=== PATIENT | female | born 1955 | race Caucasian/White ===

== ENCOUNTER 2018-02-14 20:01 | Emergency (ER) | payer MEDICARE, MEDICAID ==
[2018-02-14] MEDS ORDERED: Diatrizoate Meglumine/Diatri 30 mL Sol ONE (20:28)
--- NOTE | 2018-02-14 20:30 | ED Physician Chart ---
ED Chief Complaint/HPI - Patient Information Date Seen:: 02/14/18 Time Seen:: 20:15 Chief Complaint:: G-tube replacement History of Present Illness:: Patient was sent here for G-tube replacement. Her G-tube is out. Allergies:: Allergies Allergy/AdvReac Type Severity Reaction Status Date / Time No Known Allergies Allergy Verified 02/14/18 20:05 Vitals:: Vital Signs - 8 hr 02/14/18 20:05 Temp 97.8 F HR 99 RR 18 BP 141/93 O2 Sat % 95 Historian:: EMS Review:: Transfer documents Reviewed ED Review of Systems - Review of Systems General/Constitutional: No fever, No chills, No weight loss, No weakness, No diaphoresis, No edema, No loss of appetite Skin: No skin lesions, No rash, No bruising Head: No headache, No light-headedness Eyes: No loss of vision, No pain, No diplopia ENT: No earache, No nasal drainage, No sore throat, No tinnitus Neck: No neck pain, No swelling, No thyromegaly, No stiffness, No mass noted Cardio Vascular: No chest pain, No palpitations, No PND, No orthopnea, No edema Pulmonary: No SOB, No cough, No sputum, No wheezing GI: No nausea, No vomiting, No diarrhea, No pain, No melena, No hematochezia, No constipation, No hematemesis G/U: No dysuria, No frequency, No hematuria Musculoskeletal: No bone or joint pain, No back pain, No muscle pain Endocrine: No polyuria, No polydipsia Psychiatric: Prior psych history, No depression, No anxiety, No suicidal ideation Hematopoietic: No bruising, No lymphadenopathy Allergic/Immuno: No urticaria, No angioedema Neurological: No syncope, No focal symptoms, No weakness, No paresthesia, No headache, No seizure, No dizziness, No confusion, No vertigo ED Past Medical History - Past Medical History Past Medical History: HTN, DM, Other (mental retardation; several palsy; or lipidemia; stage III decubitus left hemibuttocks; status post pneumonia) Family History: Other Social History: Care Facility Surgical History: PEG/GTube Psychiatricy History: Other (mental retardation) Family Medical History - Family Member Mother History Unknown: Yes ED Physical Exam - Physical Examination Other Gen/Cons comments:: Contractured; nonverbal Head: Atraumatic Eyes: Lids, conjuctiva normal, PERRL Other ENMT comments:: Edentulous Neck: No nuchal rigidity Respiratory: Nl effort/Exclusion, Clear to Auscultation Cardio Vascular: RRR, No murmur, gallop, rubs, NL S1 S2 GI: No tenderness/rebounding/guarding : No CVA tenderness Extremities: Normal digits & nails Other Neuro/Psych comments:: Not applicable ED Assessment - Assessment General Assessment: After Betadine skin cleansure a #20 gauge G-tube was easily inserted; that G- tube was then removed and a #22 G-tube was also easily inserted. The latter procedure caused some bleeding which subsided with pressure. The positioning of the G-tube in the gastrointestinal tract was confirmed by taking a KUB after the injection of Gastrografin. The first KUB showed contrast material in the stomach and then after the injection of some water showed the contrast to be in the small bowel also. I called Dr. Reeder and he agreed patient can return to her extended care facility. ED Septic Shock - . Is Septic Shock (SBP<90, OR Lactate>4 mmol\L) present?: No - <6hrs of presentation: Vital Signs: Vital Signs - 8 hr 02/14/18 20:05 Temp 97.8 F HR 99 RR 18 BP 141/93 O2 Sat % 95 ED Reassessment (Disposition) - Reassessment Reassessment Condition:: Improved - Diagnosis Diagnosis:: G-tube replacement: Severe mental retardation
--- NOTE | 2018-02-15 08:44 | Diagnostic Imaging Report ---
Exam: KUB of the abdomen, gastrostomy tube placement. Prior exam: None Findings: Portable summation of the abdomen at the 4 hours reviewed. The study demonstrates injection of contrast material into gastrostomy tube with normal opacification stomach. IMPRESSION: Gastrostomy tube in the stomach.
== END 2018-02-14 21:05 ==
LOC: EDBD 20:01 → ER 20:01
DX: Z43.1 Encounter for attention to gastrostomy (principal); F72 Severe intellectual disabilities; I10 Essential (primary) hypertension; E11.9 Type 2 diabetes mellitus without complications; Z98.890 Other specified postprocedural states
CPT/HCPCS: 82948-90; Z7502; Z7610